=== PATIENT | female | born 1960 | race Caucasian/White ===

== ENCOUNTER 2023-10-22 10:04 | Day surgery (SDC) | payer MEDICARE, OTHER, SELFPAY ==
--- NOTE | 2023-10-21 10:40 | P.CONAN_ITS ---
HPI - Anesthesia Eval Consult details Narrative: 63yo F for Bilateral Medial Rectus Eye Muscle Recession Medically cleared Coumadin for Factor V - Hx DVT and PE [facility] Past Medical History Medical History Osteoarthritis Factor V Leiden Elevated cholesterol HTN (hypertension) Chronic cough Hypothyroidism Seronegative rheumatoid arthritis Dyslipidemia Insomnia Hypertension Diverticulosis Avascular necrosis of bone of right hip Peripheral neuropathy Restless legs Obesity GERD (gastroesophageal reflux disease) Pulmonary embolus DVT (deep venous thrombosis) Carpal tunnel syndrome Diabetes mellitus Family History Family History (Updated 08/08/22 @ 13:25 by Angel Arvizu LPN) Father Alcoholic Maternal Grandmother Hypertension CVA (cerebral vascular accident) Maternal Grandfather Gout AAA (abdominal aortic aneurysm) Surgical History Surgical History History of total left knee replacement S/P insertion of IVC (inferior vena caval) filter History of transmetatarsal amputation of right foot Social History Social History Patient Tobacco Use Status: Never used Tobacco Use of substances other than those prescribed or required for medical reasons: No Are you DNR?: No Advance Directives: No Advance Directives Information Provided: Yes Meds Allergies Allergy/AdvReac Type Severity Reaction Status Date / Time Penicillins Allergy Unknown RASH Verified 10/22/23 10:30 sulfamethoxazole Allergy Unknown RASH/SOB Verified 10/22/23 10:30 [From Bactrim] trimethoprim [From Bactrim] Allergy Unknown RASH/SOB Verified 10/22/23 10:30 apixaban [From Eliquis] AdvReac Unknown Verified 10/21/23 13:53 From Erythrocin Allergy Intermediate RASH Uncoded 10/22/23 10:30 From Toradol Allergy Unknown Unknown Uncoded 10/22/23 10:32 From Ultram Allergy Unknown MED Uncoded 06/15/20 14:41 REACTION Home Medications Medication Instructions Recorded Confirmed Last Taken Type etanercept 50 mg/mL (1 mL) 50 mg subcut QWEEK 08/08/22 08/08/22 Unknown History subcutaneous pen injector (Enbrel SureClick) folic acid 1 mg tablet 1 mg PO DAILY 08/08/22 08/08/22 Unknown History lisinopril 5 mg tablet 5 mg PO DAILY 08/08/22 08/08/22 Unknown History methotrexate sodium 15 mg tablet 15 mg PO QWEEK 08/08/22 08/08/22 Unknown History pravastatin 80 mg tablet 80 mg PO DAILY 08/08/22 08/08/22 Unknown History pregabalin 200 mg capsule (Lyrica) 200 mg PO TID 08/08/22 08/08/22 Unknown History ropinirole 2 mg tablet 2 mg PO BEDTIME 08/08/22 08/08/22 Unknown History topiramate 100 mg tablet 100 mg PO BID 08/08/22 08/08/22 Unknown History venlafaxine 150 mg 150 mg PO DAILY 08/08/22 08/08/22 Unknown History capsule,extended release 24 hr venlafaxine 75 mg tablet 75 mg PO DAILY 08/08/22 08/08/22 Unknown History warfarin 1 mg tablet 1 mg PO DAILY 08/08/22 08/08/22 Unknown History warfarin 5 mg tablet mg 10/22/23 10/19/23 History warfarin 5 mg tablet mg 10/22/23 10/19/23 History Exam Narrative Narrative: EKG 2022 per clearance note NSR Assessment and Plan Assessment Anesthesia Assessment: Chart Reviewed
[2023-10-22] VITALS (7 sets, daily range): BP systolic 113–149; BP diastolic 67–82; PULSE 80–92; RESP 16–20; TEMP 36.1–36.7; O2SAT 95–98; BMI 37.5
[2023-10-22] MEDS: Lactated Ringers 1,000 ML 100 ML IVCONT (11:22)
[2023-10-22 11:37] LABS: INTERNATIONAL NORM RATIO 1.5 (0.9-1.1); Prothrombin Time 18.2 SEC (11.1-13.3)
--- NOTE | 2023-10-22 15:42 | HO.OPHTHAL ---
Ophthalmology Operative Note Date of Service: 10/22/23 Narrative: Diagnosis esotropia. Procedure bilateral medial rectus recessions of [address] Gilmore. Anesthesia general. Complications none. The patient was brought to the operating room placed under general anesthesia. The eyes were prepped and draped in the usual sterile ophthalmic fashion. A lid speculum was placed in the right eye and a peritomy was created around the medial rectus muscle. The muscle was hooked and secured with a double-armed Vicryl suture. It was then reattached to the globe 3 mm behind the original insertion. Conjunctiva was closed with interrupted Vicryl sutures. An identical procedure was then performed on the left eye. The patient was then awoken from general anesthesia and discharged to postoperative recovery in good condition.
== END 2023-10-22 15:12 | disposition home or self-care (01) ==
PROVIDERS: Nurse Practitioner; PCP Internal Medicine; Visit Provider Ophthalmology
PROC: (CPT 67311; principal; 2023-10-22 11:30)
DX: H50.32 Intermittent alternating esotropia (principal); G89.29 Other chronic pain; M54.9 Dorsalgia, unspecified; M25.569 Pain in unspecified knee; G62.9 Polyneuropathy, unspecified; I82.409 Acute embolism and thrombosis of unspecified deep veins of unspecified lower extremity; I26.99 Other pulmonary embolism without acute cor pulmonale; M06.9 Rheumatoid arthritis, unspecified; I10 Essential (primary) hypertension; L97.912 Non-pressure chronic ulcer of unspecified part of right lower leg with fat layer exposed; Z79.01 Long term (current) use of anticoagulants; Z88.0 Allergy status to penicillin; Z88.1 Allergy status to other antibiotic agents; Z88.2 Allergy status to sulfonamides; Z88.8 Allergy status to other drugs, medicaments and biological substances
CPT/HCPCS: 67311; 36415; 85610; J0131; J1596; J2250; J2704; J3010